=== PATIENT | male | born 1945 | race Caucasian/White ===

== ENCOUNTER 2021-07-28 06:06 | Inpatient (IN) | payer OTHER ==
[2021-07-27 12:33] LABS: Urine Bacteria NONE SEEN /hpf (None Seen); Urine Blood Negative /uL (Negative); Urine Mucus FEW (None Seen); Urine Specific Gravity 1.019 (1.001-1.035); Urine WBC 1 /hpf (0 - 3)
[2021-07-27 12:40] LABS: INR 0.96 (0.9-1.15); Partial Thromboplastin Time 25.9 sec (23.6-33.0)
[2021-07-27 12:48] LABS: Basophils # (auto) 0 10 ^3/uL (0-0.2); Basophils % (auto) 0.7 % (0.0-2.0); Eosinophils # (auto) 0.3 10 ^3/uL (0-0.8); Eosinophils % (auto) 5.3 % (0.0-7.0); Hematocrit 37.4 % (41.0-53.0); Hemoglobin 12.6 g/dL (13.5-17.5); Lymphocytes # (auto) 0.9 10 ^3/uL (0.4-5.4); Lymphocytes % (auto) 14.3 % (10.0-50.0); Mean Corpuscular Hemoglobin 29.7 pg (28.0-32.0); Mean Corpuscular Hgb Conc. 33.6 g/dL (32.0-36.0); Mean Corpuscular Volume 88.5 fL (80.0-100.0); Monocytes # (auto) 0.5 10 ^3/uL (0-1.3); Monocytes % (auto) 7.4 % (0.0-12.0); Neutrophils # (auto) 4.7 10 ^3/uL (1.6-8.6); Neutrophils % (auto) 72.3 % (37.0-80.0); Red Blood Cells 4.23 10^6/uL (4.5-5.90); Red Cell Distribution Width 13.7 % (11.8-14.3); White Blood Cell 6.5 10^3/uL (4.4-10.8)
[2021-07-27 13:24] LABS: Albumin 3.2 g/dL (3.4-5.0); BUN/Creatinine Ratio 11.5; Bilirubin, Total 0.5 mg/dL (0.2-1.0); Calcium 8.8 mg/dL (8.5-10.1)
[~2021-07-28] VITALS: Ht 182.9 cm; Wt 100.8 kg
[~2021-07-28 06:06] MED LIST: ASPI1TAB20 PO; ATOR20TA PO; CHOL20007 OR; DONE1TAB88 PO; GABA-339 PO; IBUP800T27 PO; PRA1C PO
[2021-07-28] MEDS ORDERED: ceFAZolin 1GM/50ML 100 ML IV ONE (06:12)
[2021-07-28] MEDS ORDERED: ceFAZolin 1GM/50ML 50 ML IV ONE (08:47)
[2021-07-28] MEDS ORDERED: SUCCINYLCHOLINE CHLORIDE 20 MG/ML 10ML VIAL IV ONE (08:53)
[2021-07-28] MEDS ORDERED: TRANEXAMIC ACID 20 ML ONE (08:53)
[2021-07-28] MEDS ORDERED: BACITRACIN INJ 50000 UNIT VIAL ONE (08:53)
[2021-07-28] MEDS: BUPIVACAINE W/ EPINEPH 0.25% INJ 50ML MDV ONE ×2 (08:53→12:26)
[2021-07-28] MEDS ORDERED: MEPERIDINE HCL (50 MG/ML) 1 ML VIAL ONE (08:55)
[2021-07-28] MEDS ORDERED: fentaNYL CITRATE 100 MCG/2 ML VL ONE (08:55)
[2021-07-28] MEDS ORDERED: MIDAZOLAM HCL 2MG/2ML 2ml VIAL (1mg/ml) ONE ×2 (08:55→13:07)
[2021-07-28] MEDS ORDERED: fentaNYL CITRATE 5 ML ONE (08:55)
[2021-07-28] MEDS: KETOROLAC TROMETH 30 MG/ML 1ML VIAL ONE ×2 (09:01→12:26)
[2021-07-28] MEDS ORDERED: ePHEDrine SULFATE 50 MG/ML AMP IV PRN (09:45)
[2021-07-28] MEDS ORDERED: MORPHINE SULFATE 4 MG/ML SYR/VIAL IV PRN (09:45)
[2021-07-28] MEDS ORDERED: ONDANSETRON HCL 4 MG/2 ML VIAL IV PRN ×2 (09:45→12:45)
[2021-07-28] MEDS ORDERED: MIDAZOLAM HCL 2MG/2ML 2ml VIAL (1mg/ml) IV PRN (09:45)
[2021-07-28] MEDS ORDERED: LABETALOL HCL 5 MG/ML 4ML SYRINGE IV PRN (09:45)
[2021-07-28] MEDS ORDERED: DexAMETHasone SOD PHOS 10MG/1ML VIAL INJ ONE (10:08)
[2021-07-28] MEDS ORDERED: PROPOFOL 10 MG/ML 20 ML IV ONE (10:08)
[2021-07-28] MEDS ORDERED: MORPHINE SULF PF 2 MG/2 ML SYRG ONE (10:09)
[2021-07-28] MEDS ORDERED: HYDROcodone-ACET 10/325MG TAB PO PRN (12:45)
[2021-07-28] MEDS ORDERED: NITROGLYCERIN 0.4 MG SL TAB SL PRN (12:45)
[2021-07-28] MEDS ORDERED: ACETAMINOPHEN 325 MG TAB PO PRN (12:45)
[2021-07-28] MEDS ORDERED: MORPHINE SULFATE INJECTION 2 MG/ML SYRG IV PRN (12:45)
[2021-07-28] MEDS: ceFAZolin 1GM/50ML 50 ML IV SCH ×2 (13:00→19:52)
[2021-07-28] MEDS ORDERED: HYDROmorphone HCL 2 MG/ML VL ONE (13:15)
[2021-07-28] MEDS: HYDROmorphone HCL 2 MG/ML VL IV PRN ×4 (13:15→16:20)
[2021-07-28 13:48] LABS: BUN/Creatinine Ratio 10.3; Calcium 8.1 mg/dL (8.5-10.1)
[2021-07-28] MEDS: LACTATED RINGER'S 1,000 ML IV SCH ×2 (14:17→19:53)
[2021-07-28 14:52] VITALS: BP 142/60
[2021-07-28] MEDS: DOCUSATE SOD 100 MG CAP PO SCH (20:22)
[2021-07-28 22:00] VITALS: BP 125/66
[2021-07-28] MEDS: GABAPENTIN 300 MG CAP PO SCH (22:06)
[2021-07-28] MEDS: PRAZOSIN HCL 1 MG CAP PO SCH (22:07)
[2021-07-29] MEDS: HYDROmorphone HCL 2 MG/ML VL IV PRN ×3 (00:49→15:29)
[2021-07-29] MEDS: ceFAZolin 1GM/50ML 50 ML IV SCH (01:06)
[2021-07-29 04:51] VITALS: BP 138/67
[2021-07-29] MEDS: LACTATED RINGER'S 1,000 ML IV SCH (05:09)
[2021-07-29] MEDS: GABAPENTIN 300 MG CAP PO SCH (05:09)
[2021-07-29 06:46] LABS: Hematocrit 28.6 % (41.0-53.0); Hemoglobin 9.4 g/dL (13.5-17.5)
[2021-07-29 06:55] LABS: Albumin 2.5 g/dL (3.4-5.0); Calcium 8.1 mg/dL (8.5-10.1); Potassium 4.3 mmol/L (3.5-5.1)
[2021-07-29 07:01] LABS: BUN/Creatinine Ratio 14.6; Bilirubin, Total 0.4 mg/dL (0.2-1.0); Total Protein 5.6 g/dL (6.4-8.2)
[2021-07-29 08:37] VITALS: BP 106/64
[2021-07-29] MEDS: DOCUSATE SOD 100 MG CAP PO SCH (09:49)
[2021-07-29] MEDS: PRAZOSIN HCL 1 MG CAP PO SCH (09:50)
[2021-07-29] MEDS ORDERED: ASPirin-EC 81 mg tab PO SCH (10:00)
[2021-07-29 13:00] VITALS: BP 109/55
[2021-07-29] MEDS ORDERED: GABAPENTIN 400 MG CAP PO SCH (14:00)
[2021-07-29 15:29] VITALS: BP 151/67
== END 2021-07-29 15:30 | disposition home or self-care (01) | DRG 483 ==
LOC: SUR 06:06 → CENTRAL 17:38 → TELE-CENTR 21:14
PROVIDERS: ADMIT Orthopaedic Surgery Sports Medicine; ATTEND Orthopaedic Surgery Sports Medicine
PROC: 0RRK00Z Replacement of Left Shoulder Joint with Reverse Ball and Socket Synthetic Substitute, Open Approach (ICD-10-PCS; principal; 2021-07-28 09:11)
DX: S42.92XA Fracture of left shoulder girdle, part unspecified, initial encounter for closed fracture (principal); S42.202A Unspecified fracture of upper end of left humerus, initial encounter for closed fracture; Y93.89 Activity, other specified; Y92.89 Other specified places as the place of occurrence of the external cause; Y99.8 Other external cause status; Z20.822 Contact with and (suspected) exposure to COVID-19
CPT/HCPCS: 36415; 73020; 73030; 76001; 80048; 80053; 81001; 85014; 85018; 85025; 85610; 85730; 86850; 86900; 86901; 97163; A4565; G0378; J0330; J0690; J1100; J1885; J2250; J2405; J2704